=== PATIENT | female | born 1985 | race Caucasian/White ===

== ENCOUNTER 2019-04-15 14:50 | Emergency (ER) | payer OTHER ==
[~2019-04-15] VITALS: Ht 162.6 cm; Wt 73.9 kg
[~2019-04-15 14:50] MED LIST: NON
[2019-04-15] MEDS ORDERED: CLIMARA1 EAC3 (15:11)
[2019-04-15] MEDS ORDERED: BIOTE (15:11)
== END 2019-04-15 17:12 | disposition home or self-care (01) ==
LOC: ER 14:50
DX: M75.51 Bursitis of right shoulder (principal); M25.512 Pain in left shoulder; M25.511 Pain in right shoulder

== ENCOUNTER 2019-08-31 18:48 | Emergency (ER) | payer OTHER ==
[~2019-08-31] VITALS: Ht 160 cm; Wt 71.2 kg
[~2019-08-31 18:48] MED LIST changes: +BIOTE; +CLIMARA1 EAC3
== END 2019-08-31 22:28 | disposition home or self-care (01) ==
LOC: ER 18:48
DX: B34.9 Viral infection, unspecified (principal)

== ENCOUNTER 2019-09-24 11:36 | Outpatient (CLI) | payer OTHER | END 2019-09-24 11:37 | disposition home or self-care (01) | LOC: RAD 11:36 | DX: M25.571 Pain in right ankle and joints of right foot (principal) ==

== ENCOUNTER → 2019-10-01 | Outpatient (CLI) | payer OTHER | END | disposition home or self-care (01) | LOC: RAD 13:09 | DX: M79.671 Pain in right foot (principal) ==